=== PATIENT | female | born 1940 | race Caucasian/White ===

== ENCOUNTER → 2018-10-05 09:48 | Outpatient (CLI) | payer MEDICARE, BC, SELFPAY ==
--- NOTE | 2018-10-05 09:53 | DI.RAD.S_ITS ---
PROCEDURE: FL CATHETER PATENCY COMPARISON: [facility], , ECHOCARDIOGRAM COMPLETE, 02/23/2018, 7:54. INDICATIONS: Encounter for adjustment and management of vascula FINDINGS: The left chest port was accessed by nurse. IV contrast was injected through the existing left chest port. Injected IV contrast readily flows through the catheter without resistance. There is fibrin sheath at the tip of the catheter. IMPRESSION: 1. Patent left chest port. 2. Fibrin sheath at the tip of the catheter. Dictated by: Keyona Stack M.D. on 10/05/2018 at 11:47 Approved by: Keyona Stack M.D. on 10/05/2018 at 11:55
== END ==
PROVIDERS: Family Provider Family Medicine Geriatric Medicine; PCP Family Medicine Geriatric Medicine; Visit Provider Internal Medicine
DX: Z45.2 Encounter for adjustment and management of vascular access device (principal)
CPT/HCPCS: 76000